=== PATIENT | female | born 1950 ===

== ENCOUNTER 2021-12-18 09:57 | Emergency (ER) | payer MEDICARE, OTHER ==
[2021-12-18] MEDS ORDERED: HYDROCODONE/APAP 10/325 TAB ONE (10:23)
--- OUTSIDE RECORDS SUMMARY | 2021-12-18 10:31 | XMS REPORT | Continuity of Care Document ---
:1950 Author Organization [facility] t Address [address] [place] [address] Care Team Providers Name Role Phone [place] Attending Clinician Unavailable Helder Attending Clinician Unavailable Problems This patient has no known problems. Allergies, Adverse Reactions, Alerts Allergy Allergy Status Severity Reaction(s) Onset Inactive Treating Comm ents Source Name Type Date Date Clinician codeine Adverse Active sleepy [facility] Medications Ordered Filled Start Stop Current Ordering Indication Dosage Frequency Signature Comments Components Source Medication Medication Date Date Medication? Clinician (SIG) Name Name Pen Berthold Pen Berthold 2019-0 Yes Na as [facility] 1-12 [facility] Accu-Chek Accu-Chek 2018-09 Yes Na as [facility] Softclix Softclix 1-15 [facility] directed [facility] Lancets Lancets [facility] Enalapril Enalapril 2018-0 Yes Na [address] [facility] Maleate Maleate 7-11 [facility]ender [facility] Paroxetine Paroxetine 2018-0 Yes Na [address] [facility] HCl HCl 1-08 Millender in the [facility] Pen Berthold Pen Berthold 2018-0 Yes Na as [facility] 1-08 [facility] Lancets Lancets Yes Na as [facility] 1-08 [facility]: (dispense [facility] 00 lancets l for Outpati accu-check ent slade Clinics plus) Metformin Metformin 2017-09 Yes Na 1-1/[address] HCl HCl 0-25 Millender tablets in [facility] - 00:00: the am and [facility] 00 1 tablet l in pm Outpati ent Clinics Blood Blood 2017-09 Yes Na as [facility] Glucose Glucose 0-11 [facility] directed [facility] - Test Strip Test Strip 00:00: (DISPENSE [facility] 00 BLOOD l GLUCOSE Outpati TEST ent STRIPS Clinics FORMULARY TO INSURANCE) Blood Blood 2017-09 Yes Na as [facility] Glucose Glucose 0-11 [facility] directed [facility] - Monitor Monitor 00:00: (DISPENSE Me moria 00 BLOOD l GLUCOSE Outpati MONITOR ent FORMULARY Clinics TO INSURANCE) Lancets Lancets 2017-09 Yes Na as [facility] 0-11 [facility]: (dispense [facility] 00 lancets l formulary Outpati to ent insurance) Clinics Levemir Levemir Yes Na [address] [facility] FlexTouch FlexTouch [facility] BusPIRone BusPIRone Yes Na [address] [facility] HCl HCl [facility] Protonix Protonix Yes Na [address] [facility] Robaxin Robaxin Yes Na [address] [facility]ender [facility] Atorvastati Atorvastati Yes Na [address] [facility] n Calcium n Calcium Millender [facility] Dicyclomine Dicyclomine 2020- No Na [address] [facility] HCl HCl 09-08 Millender as needed [facility] - 00:00 for [facility] :00 stomach l pain Outpati ent Clinics Tizanidine Tizanidine 2020- No Na [address] [facility] HCl HCl 07-06 Millender as needed [facility] - 00:00 for muscle [facility] :00 cramps/yohana l n Outpati ent Clinics Immunizations Ordered Filled Immunization Date Status Comments Sour e Immunization Name Name FLUZONE HIGH DOSE FLUZONE HIGH DOSE 2019-06-[address] [facility] - OVER 65 OVER 65 00:00:00 [facility] Procedures This patient has no known procedures. Encounters Start End Encounter Admission Attending Care Care Encounter Source Date/Time Date/Time Type Type Clinicians Facility Department ID 2021-11-28 Outpatient [place] [facility] [id number] [facility] 08[facility]46:00 [facility] 2021-11-23 Outpatient [place] [facility] [id number] [facility] 08[facility]15:02 [facility] 2021-10-04 Outpatient [place] [facility] [id number] [facility] 14:38:32 [facility] 2021-10-04 Outpatient [place] [facility] [id number] [facility] 14[facility]35:37 [facility] 2021-10-04 Outpatient [place] [facility] 14:[facility] Samantha [id number] [facility] 2021-10-04 Outpatient [place] [facility] 13:46[facility]49 Samantha [id number] [facility] 2021-10-04 Outpatient [place] [facility] [id number] [facility] 13:15:34 Samantha [id number] [facility] 2021-10-04 Outpatient [place] [facility] [id number] [facility] 12:09:23 Samantha [id number] [facility] 2021[facility]10-04 Outpatient [place] [facility] [id number] [facility] 12:03:40 Samantha [id number] [facility] 2021-10-04 Outpatient Helder [facility] [id number] 11[facility]25:46 Na [id number] [facility] 2021-11-27 2021-11-27 ambulatory [facility] [id number] [facility] 2021-09-26 2021-09-26 ambulatory [facility] [id number] [facility] 2021-09-26 2021-09-26 ambulatory [facility] [id number] [facility] 2021-08-16 2021-08-16 ambulatory [facility] [id number] [facility] 2021-08-04 2021-08-04 ambulatory [facility] [id number] [facility] 2021-05-16 2021-05-16 Outpatient [facility] [id number] [facility] 2021-04-23 2021-04-23 Outpatient [facility] [id number] [facility] 2021-04-10 2021-04-10 Outpatient [facility] [id number] [facility] 2021-02-28 2021-02-28 Outpatient [facility] [id number] [facility] 2021-02-14 2021-02-14 Outpatient [facility] [id number] [facility] 2021-02-08 2021-02-08 Outpatient [facility] [id number] [facility] 2020-12-22 2020-12-22 Outpatient [facility] [id number] [facility] 2020-12-07 2020-12-07 Outpatient [facility] [id number] [facility] 2020-12-05 2020-12-05 Outpatient [facility] [id number] [facility] 2020-11-09 2020-11-09 Outpatient [facility] [id number] [facility] 2020-09-12 2020-09-12 Outpatient [facility] [id number] [facility] 2020-08-11 2020-08-11 Outpatient [facility] [id number] [facility] 2020-08-02 2020-08-02 Outpatient [facility] [id number] [facility] 2020-05-10 2020-05-10 [facility] [id number] [facility] 13:20:00 13:20:00 t [facility] Medicine l Medicine Outpati ent Clinics 2020-03-12 2020-03-12 [facility] [id number] 04:33:00 04:33:00 t [facility] Medicine l Medicine Outpati ent Clinics 2020-02-17 2020-02-17 [facility] [id number] [facility] 08:00:00 08:00:00 t [facility] Medicine l Medicine Outpati ent Clinics 2019-09-18 2019-09-18 [facility] [id number] 10:00:00 10:00:00 t [facility] Medicine l Medicine Outpati ent Clinics 2019-07-27 2019-07-27 [facility] [id number] 11:41:00 11:41:00 t [facility] Medicine l Medicine Outpati ent Clinics 2019-07-24 2019-07-24 [facility] [id number] [facility] 14:51:00 14:51:00 t [facility] Medicine Medicine Outpati ent Clinics 2019-06-24 2019-06-24 [facility] [id number] [facility] 13:10:00 13:10:00 t [facility] Medicine Outpati ent Clinics 2019-06-18 2019-06-18 [facility] [id number] [facility] 08:20:00 08:20:00 t [facility] Medicine Medicine Outpati ent Clinics 2019-03-19 2019-03-19 [facility] [id number] 08:00:00 08:00:00 t [facility] Medicine Outpati ent Clinics 2018-12-17 2018-12-17 [facility] [id number] 09:00:00 09:00:00 t [facility] Medicine Outpati ent Clinics 2018-11-10 2018-11-10 [facility] [id number] [facility] 10:13:00 10:13:00 t [facility] Medicine Outpati ent Clinics 2018-09-16 2018-09-16 [facility] [id number] [facility] 19:26:00 19:26:00 t [facility] Medicine Outpati ent Clinics 2018-09-16 2018-09-16 [facility] [id number] [facility] 09:15:00 09:15:00 t [facility] Medicine Medicine Outpati ent Clinics 2018-06-19 2018-06-19 [facility] [id number] [facility] 21:55:00 21:55:00 t [facility] Medicine Outpati ent Clinics 2018-06-19 2018-06-19 [facility] [id number] [facility] 13:54:00 13:54:00 t [facility] Medicine Outpati ent Clinics 2018-06-19 2018-06-19 Outpatient Trevor Foster [id number] [facility] 10:45:00 10:45:[address] [facility] 2018-04-04 2018-04-04 Outpatient Trevor Foster [id number] [facility] 10:03:00 10:03:00 [facility] ent Clinics 2017-12-03 2017-12-03 Outpatient Trevor Foster [id number] [facility] 08:30:00 08:30:00 [facility] ent Clinics Results This patient has no known results.
--- NOTE | 2021-12-18 12:12 | RAD REPORT ---
EXAM DESCRIPTION: RAD - Humerus Right - 12/18/2021 12:03 pm CLINICAL HISTORY: fall COMPARISON: No comparisons FINDINGS: Transverse fracture is present in the proximal humerus at the base of the greater tuberosi ty. No distraction or angulation deformity seen. There is no dislocation of the humeral head. No path ologic component seen. Acromial humeral joint space is normal. No AC joint separation is present. IMPRESSION: Proximal right humerus fracture with no distraction or angulation.
--- NOTE | 2021-12-18 13:04 | EDPHYS ---
Physician Documentation [facility] Name: Aury Taveras Age: 71 yrs Sex: Female : 1950 Arrival Date: 12/18/2021 Time: 10:03 Bed 10 Private MD: ED Physician Tony Fortune HPI: 12/18 10:20 This 71 yrs old Female presents to ER via Wheelchair with complaints of Arm Injury. jmm 10:20 The patient or guardian complains of pain. Onset: The symptoms/episode began/occurred jmm acutely, 3 day(s) ago. Modifying factors: The symptoms are alleviated by nothing. the symptoms are aggravated by movement. This is a 71-year-old female with history of diabetes mellitus the presents emerged part with complaints of proximal right arm pain. This occurred after a fall which occurred provided. Patient denies injuring her head. Denies shortness of breath or chest pain. Denies other injury. 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 - Social history:: Smoking status: Patient reports the use of cigarette tobacco products, denies chronic smoking, but will smoke occasionally. ROS: 10:20 Constitutional: Negative for fever, chills, and weight loss, Cardiovascular: Negative jmm for chest pain, palpitations, and edema, Respiratory: Negative for shortness of breath, cough, wheezing, and pleuritic chest pain. 10:20 MS/extremity: Positive for injury or acute deformity. 10:20 All other systems are negative. Exam: 10:20 Constitutional: This is a well developed, well nourished patient who is awake, alert, jmm and in no acute distress. Head/Face: atraumatic. Eyes: EOMI, no conjunctival erythema appreciated ENT: Moist Mucus Membranes Neck: Trachea midline, Supple Chest/axilla: Normal chest wall appearance and motion. Cardiovascular: Regular rate and rhythm. No edema appreciated Respiratory: Normal respirations, no respiratory distress appreciated Abdomen/GI: Non distended, soft Back: Normal ROM Skin: General appearance color normal 10:20 Musculoskeletal/extremity: ROM: intact in all extremities. 10:20 Musculoskeletal/extremity: right proximal humeral pain, full coremaker machine strength, painful abduction, compartments are soft, NVI. 10:20 Skin: Appearance: Color: normal in color. 10:20 Neuro: Orientation: is normal, Mentation: is normal, Memory: is normal. 10:20 Psych: Behavior/mood is pleasant, cooperative. Vital Signs: 10:10 BP 138 / 73; Pulse 75; Resp 18 S; Temp 98.4(TE); Pulse Ox 100% on R/A; Weight 52.16 kg jd3 (R); Height 5 ft. 6 in. (167.64 cm) (R); Pain 9/10; 12:37 Pain 7/10; ss 10:10 Body Mass Index 18.56 (52.16 kg, 167.64 cm) jd3 Procedures: 10:20 Splinting: Splint applied to right arm using sling, applied by tech. Examined by mari aguirre post splint application: neurovascular intact, 2+ distal pulses palpable, brisk capillary refill noted, Patient tolerated well. MDM: 10:20 Patient medically screened. mari 13:02 Data reviewed: vital signs, nurses notes. Counseling: I had a detailed discussion with mari the patient and/or guardian regarding: the historical points, exam findings, and any diagnostic results supporting the discharge/admit diagnosis, radiology results, the need for outpatient follow up, to return to the emergency department if symptoms worsen or persist or if there are any questions or concerns that arise at home. 12/18 10:21 Order name: Humerus Right XRAY; Complete Time: 12:19 mari 12/18 12:21 Order name: Shoulder Immobilizer; Complete Time: 12:37 mari Administered Medications: 10:21 Drug: [place] (HYDROcodone-acetaminophen) 10 mg-325 mg 1 tabs Route: PO; jd3 12:37 Follow up: Response: No adverse reaction; Pain is decreased ss 10:56 CANCELLED (Duplicate Order): [place] (HYDROcodone-acetaminophen) 10 mg-325 mg 1 tabs PO jd3 once; RASS on ADMIN: Combtv4, Very Agttd3, Agttd2, Rstlss1, AlertClm0, Drwsy-1, Lt Sdtn-2, Mod Sdtn-3, Dp Sdtn-4, UnArsble-5 Disposition: 14:06 Co-signature as Attending Physician, Tony Fortune MD. rn Disposition Summary: 12/18/21 13:03 Discharge Ordered Location: Home [facility] Condition: Stable [facility] Diagnosis - Right Proximal Humeral Fracture [facility] Followup: [facility] - With: Dillon Rice MD - When: 2 - 3 days - Reason: Recheck today's complaints, Continuance of care, Re-evaluation by your physician Discharge Instructions: - Discharge Summary Sheet [facility] - Humerus Fracture Treated With Immobilization [facility] Forms: - Medication Reconciliation Form [facility] - Thank You Letter [facility] - Antibiotic Education [facility] - Prescription Opioid Use [facility] Prescriptions: - Ultracet 37.5-325 mg Oral Tablet - take 1 tablet by ORAL route every 6 hours - for up to 5 days; do not exceed 8 jmm tablets per day.; 20 tablet; Refills: 0, Product Selection Permitted Signatures: Dispatcher [employer] EDWI Miguel Rowland PA PA jm Tony Fortune MD MD rn Davies, Jonathon, RN RN jd3 Smirch, Shelby RN ss Corrections: (The following items were deleted from the chart) 10:56 10:21 [place] (HYDROcodone-acetaminophen) 10 mg-325 mg 1 tabs PO once; RASS on ADMIN: jd3 Combtv4, Very Agttd3, Agttd2, Rstlss1, AlertClm0, Drwsy-1, Lt Sdtn-2, Mod Sdtn-3, Dp Sdtn-4, UnArsble-5 ordered. [facility]
--- NOTE | 2021-12-18 13:04 | ER ---
Nurse's Notes [facility] Name: Aury Taveras Age: 71 yrs Sex: Female : 1950 Arrival Date: 12/18/2021 Time: 10:03 Bed 10 Private MD: Diagnosis: Right Proximal Humeral Fracture Presentation: 12/18 10:05 Chief complaint: Patient states: "I think I may have broken my arm on Saturday. I tripped jd3 over my puppy dog.". Coronavirus screen: At this time, the client does not indicate any symptoms associated with coronavirus-19. Ebola Screen: No symptoms or risks identified at this time. Initial Sepsis Screen: Does the patient meet any 2 criteria? No. Patient's initial sepsis screen is negative. Does the patient have a suspected source of infection? No. Patient's initial sepsis screen is negative. Risk Assessment: Do you want to hurt yourself or someone else? Patient reports no desire to harm self or others. Onset of symptoms was December 15, 2021. 10:05 Method Of Arrival: Wheelchair jd3 10:05 Acuity: [place] 3 jd3 Triage Assessment: 10:21 General: Appears in no apparent distress. comfortable, Behavior is calm, cooperative, jd3 appropriate for age. Pain: Complains of pain in right shoulder Quality of pain is described as sharp, tender. EENT: No signs and/or symptoms were reported regarding the EENT system. Neuro: Level of Consciousness is awake, alert, obeys commands, Oriented to person, place, time, situation. Respiratory: Airway is patent Respiratory effort is even, unlabored, Respiratory pattern is regular, symmetrical, Denies cough, shortness of breath. Musculoskeletal: Circulation, motion, and sensation intact. Range of motion: limited in right shoulder and right elbow. Injury Description: Bruise sustained to anterior aspect of right shoulder and right bicep. 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 - Social history:: Smoking status: Patient reports the use of cigarette tobacco products, denies chronic smoking, but will smoke occasionally. Screenin:07 Abuse screen: Denies threats or abuse. Denies injuries from another. Nutritional ss screening: No deficits noted. Tuberculosis screening: Never had TB. Fall Risk None identified. Assessment: 11:07 General: Appears in no apparent distress. Behavior is calm, cooperative. Pain: ss Complains of pain in right elbow and right shoulder Pain currently is 9 out of 10 on a pain scale. Is continuous, Aggravated by increased activity. Neuro: Level of Consciousness is awake, alert, obeys commands, Oriented to person, place, time, situation. Cardiovascular: Capillary refill < 3 seconds is brisk in bilateral fingers. Respiratory: Airway is patent Respiratory effort is even, unlabored, Respiratory pattern is regular, symmetrical. EENT: Nares are clear Throat is clear. Derm: Skin is intact, is healthy with good turgor, Skin is pink, warm \\T\\ dry. normal. 11:34 Reassessment: XRAY at bedside at this time. ss 12:37 Reassessment: Patient appears in no apparent distress at this time. Patient and/or ss family updated on plan of care and expected duration. Pain level reassessed. Patient is alert, oriented x 3, equal unlabored respirations, skin warm/dry/pink. Vital Signs: 10:10 BP 138 / 73; Pulse 75; Resp 18 S; Temp 98.4(TE); Pulse Ox 100% on R/A; Weight 52.16 kg jd3 (R); Height 5 ft. 6 in. (167.64 cm) (R); Pain 9/10; 12:37 Pain 7/10; ss 10:10 Body Mass Index 18.56 (52.16 kg, 167.64 cm) jd3 ED Course: 10:03 Patient arrived in ED. ja2 10:06 Triage completed. jd3 10:11 Arm band placed on. jd3 10:12 Miguel Rowland PA is PHCP. mari 10:12 Tony Fortune MD is Attending Physician. jmm 10:22 Patient placed in waiting room, in a wheelchair, Patient ice pack applied to injury. jd3 10:23 Nurse Practitioner and/or Physician Direct Service Provider to see patient. jd3 11:07 Milagro Lima, RN is Primary Nurse. ss 11:07 Patient has correct armband on for positive identification. Bed in low position. Call ss light in reach. 12:05 Humerus Right XRAY In Process Unspecified. EDMS 12:37 No provider procedures requiring assistance completed. Patient did not have IV access ss during this emergency room visit. Shoulder immobilizer applied on right shoulder. 13:02 Dillon Rice MD is Referral Physician. [facility] Administered Medications: 10:21 Drug: [place] (HYDROcodone-acetaminophen) 10 mg-325 mg 1 tabs Route: PO; jd3 12:37 Follow up: Response: No adverse reaction; Pain is decreased ss 10:56 CANCELLED (Duplicate Order): [place] (HYDROcodone-acetaminophen) 10 mg-325 mg 1 tabs PO jd3 once; RASS on ADMIN: Combtv4, Very Agttd3, Agttd2, Rstlss1, AlertClm0, Drwsy-1, Lt Sdtn-2, Mod Sdtn-3, Dp Sdtn-4, UnArsble-5 Outcome: 13:03 Discharge ordered by . [facility] 13:24 Discharged to home via wheelchair, with friend. ss 13:24 Condition: good 13:24 Discharge instructions given to patient, Instructed on discharge instructions, follow up and referral plans. Demonstrated understanding of instructions, follow-up care, Prescriptions given X 1. 13:25 Patient left the ED. ss Signatures: Dispatcher [employer] EDMS Miguel Rowland PA PA Milagro Solis, RN RN Mark Gamble RN RN jMarcella Mcwilliams
[2021-12-18 13:44] VITALS: BP 138/73; TEMP 98.4; O2SAT 100
== END 2021-12-18 13:25 | disposition home or self-care (01) ==
LOC: ER 09:57
DX: S42.291A Other displaced fracture of upper end of right humerus, initial encounter for closed fracture (principal); W19.XXXA Unspecified fall, initial encounter; E11.9 Type 2 diabetes mellitus without complications; F17.210 Nicotine dependence, cigarettes, uncomplicated
CPT/HCPCS: 99284